=== PATIENT | female | born 1985 | race Caucasian/White ===

== ENCOUNTER 2020-07-12 17:06 | Emergency (ER) | payer OTHER, MEDICAID, SELFPAY ==
[2020-07-12 17:10] VITALS: BP 114/97; PULSE 66; RESP 14; TEMP 36.7; O2SAT 97
--- NOTE | 2020-07-12 17:14 | ECG_ITS ---
Measurements Intervals [place] Rate: 60 P: 4 HI: 177 QRS: 9 QRSD: 109 T: 18 QT: 432 QTc: 432 Interpretive Statements SINUS RHYTHM INCOMPLETE RIGHT BUNDLE BRANCH BLOCK BORDERLINE ECG Electronically Signed On 07-13-2020 7:45:31 CDT by Vinny Evans D.O.
[2020-07-12 17:15] VITALS: PULSE 66
--- NOTE | 2020-07-12 17:49 | ED.ARRPALP ---
HPI - Arrhythmia/Palpitations General Chief Complaint: Arrhythmia/Palpitations Stated Complaint: irregular heartbeat Time Seen by Provider: 07/12/20 18:00 Source: patient Mode of arrival: ambulatory Limitations: no limitations History of Present Illness HPI narrative: 34-year-old woman with previous awoke comes in today complaining of irregular heartbeats that lasted few seconds at a time. She noticed some 1st about a week ago after she was exercising and they happen multiple times every day. She states that she is very busy and under lot of stress recently. She states that sometimes she feels a little short of breath after an episode but she has had no syncope, cough, chest pain, sweats, nausea, vomiting or recent illness. complaint: palpitations Onset (ago): day(s) (7) Duration: intermittent Severity: mild Context: occurred during rest and occurred during exertion Associated symptoms: shortness of breath Related Data Home Medications Medication Instructions Recorded Confirmed norethindrone-e.estradiol-iron 1 tablet PO DAILY 07/12/20 07/12/20 [Thelma 24 Fe] Allergies Allergy/AdvReac Type Severity Reaction Status Date / Time No Known Allergies Allergy Verified 07/12/20 17:20 Review of Systems Constitutional: Constitutional: Denies chills and Denies fever(s) ENT: Denies dysphagia, Denies nasal congestion and Denies sore throat Cardiovascular: Cardiovascular: Denies chest pain, Denies rapid heart rate, Denies radiating jaw, neck or arm pain and Denies slow heart rate Respiratory: Respiratory: Denies cough, Denies dyspnea and Denies wheezing Gastrointestinal: Gastrointestinal: Denies abdominal pain, Denies nausea and Denies vomiting Neurologic: Denies vertigo, Denies dizziness, Denies syncope and Denies headache(s) Hematologic/Lymphatic: Hematologic/Lymphatic: Denies easy bleeding and Denies easy bruising Allergic/Immunologic: Allergic/Immunologic: Denies lip swelling, Denies throat swelling and Denies tongue swelling PMF Social History Social History Smoking status: Never smoker Alcohol intake: never Substance use type: marijuana Other substance usage details: oral THC at bedtime Living arrangements: with family Course Vital Signs Vital signs: Vital Signs Temperature 36.7 C 07/12/20 17:10 Pulse Rate 66 07/12/20 17:10 Respiratory Rate 14 07/12/20 17:10 Blood Pressure 114/97 H 07/12/20 17:10 Pulse Oximetry 97 07/12/20 17:10 Temperature 36.7 C 07/12/20 17:10 Pulse Rate 66 07/12/20 17:15 Respiratory Rate 14 07/12/20 17:10 Blood Pressure 114/97 H 07/12/20 17:10 Pulse Oximetry 97 07/12/20 17:10 MDM - Arrhythmia/Palpitations Lab Data Result diagrams: 07/12/20 18:32 07/12/20 18:32 Labs: Lab Results 07/12/20 07/12/20 07/12/20 Range/Units 18:32 18:32 18:32 WBC 5.4 (4.8-10.8) K/mm3 RBC 3.99 L (4.20-5.40) M/mm3 Hgb 11.7 L (12.0-15.0) g/dL Hct 36.5 (35.0-49.0) % MCV 91.5 (78.0-102.0) fL MCH 29.3 (27.0-31.0) pg MCHC 32.1 (32.0-36.0) g/dL RDW 13.1 (11.6-14.4) % Plt Count 228 (150-420) K/mm3 MPV 9.9 (9.2-11.8) fl Immature Gran % (Auto) 0.2 H (0.0-0.0) % Neut % (Auto) 59.1 (50.0-70.0) % Lymph % (Auto) 31.6 (18.0-42.0) % [place] % (Auto) 5.9 (2.0-11.0) % Eos % (Auto) 2.6 (1.0-6.0) % Baso % (Auto) 0.6 (0.0-1.0) % Lymph # (Auto) 1.70 (1.10-4.50) K/mm3 [place] # (Auto) 0.32 (0.10-0.90) K/mm3 Eos # (Auto) 0.14 (0.02-0.50) K/mm3 Baso # (Auto) 0.03 (0.00-0.10) K/mm3 Abs Immat Gran (auto) 0.01 H (0.00-0.00) K/mm3 Absolute Neuts (auto) 3.2 (1.7-7.2) K/mm3 Absolute Nucleated RBC 0.00 (0.00-0.00) K/mm3 Nucleated RBC % 0.0 (0-0.0) % Sodium 141 (136-145) mmol/L Potassium 4.0 (3.5-5.1) mmol/L Chloride 106 (98-108) mmol/L Carbon Dioxide 29 (21-32
[2020-07-12 18:37] LABS: Basophils Absolute Auto 0.03 K/mm3 (0.00-0.10); Basophils Percent Auto 0.6 % (0.0-1.0); Eosinophils Absolute Auto 0.14 K/mm3 (0.02-0.50); Eosinophils Percent Auto 2.6 % (1.0-6.0); Hematocrit 36.5 % (35.0-49.0); Hemoglobin 11.7 g/dL (12.0-15.0); Immature Granulocyte Absolute 0.01 K/mm3 (0.00-0.00); Immature Granulocyte Percent A 0.2 % (0.0-0.0); Lymphocytes Percent Auto 31.6 % (18.0-42.0); Mean Corpuscular HGB Conc 32.1 g/dL (32.0-36.0); Mean Corpuscular Hemoglobin 29.3 pg (27.0-31.0); Mean Corpuscular Volume 91.5 fL (78.0-102.0); Mean Platelet Volume 9.9 fl (9.2-11.8); Monocytes Absolute Auto 0.32 K/mm3 (0.10-0.90); Monocytes Percent Auto 5.9 % (2.0-11.0); Neutrophils Absolute Auto 3.2 K/mm3 (1.7-7.2); Neutrophils Percent Auto 59.1 % (50.0-70.0); Platelet Count Result 228 K/mm3 (150-420); Red Blood Count 3.99 M/mm3 (4.20-5.40); Red Cell Distribution Width 13.1 % (11.6-14.4); White Blood Count 5.4 K/mm3 (4.8-10.8)
[2020-07-12 19:01] LABS: Alanine Aminotransferase 21 U/L (14-59); Albumin Level 3.1 g/dL (3.4-5.0); Alkaline Phosphatase 51 U/L (46-116); Anion Gap 6 mmol/L (8-16); Aspartate Amino Transferase 16 U/L (15-37); Bilirubin,Total 0.3 mg/dL (0.00-1.00); Blood Urea Nitrogen 15 mg/dL (7-18); Calcium 8.2 mg/dL (8.5-10.1); Carbon Dioxide 29 mmol/L (21-32); Chloride 106 mmol/L (98-108); Estimated CRCL calculation 64 ml/min; Estimated Glomerular Filt Rate 55; Glucose 80 mg/dL (70-99); Osmolality Calculated 291 mOsm/kg (285-295); Sodium 141 mmol/L (136-145); Total Protein 6.7 g/dL (6.4-8.2)
[2020-07-12 19:37] VITALS: BP 111/56; PULSE 57; RESP 11; TEMP 36.6; O2SAT 100
== END 2020-07-12 19:38 | disposition home or self-care (01) ==
PROVIDERS: Emergency Provider Emergency Medicine; PCP Family Medicine
DX: R00.2 Palpitations (principal); R79.9 Abnormal finding of blood chemistry, unspecified
CPT/HCPCS: 36415; 80053; 84443; 85025; 93005; 99283

== ENCOUNTER 2021-01-27 17:45 | Outpatient (CLI) | payer OTHER, SELFPAY | END 2021-01-27 17:46 | disposition home or self-care (01) | LOC: ANHCOVIDVC 17:45 | PROVIDERS: PCP Family Medicine | DX: Z23 Encounter for immunization (principal) | CPT/HCPCS: 0001A; 91300 ==

== ENCOUNTER 2021-02-17 17:44 | Outpatient (CLI) | payer OTHER, SELFPAY | END 2021-02-17 17:45 | disposition home or self-care (01) | LOC: ANHCOVIDVC 17:44 | PROVIDERS: PCP Family Medicine | DX: Z23 Encounter for immunization (principal) | CPT/HCPCS: 0002A; 91300 ==

== ENCOUNTER 2021-11-21 10:23 | Outpatient (CLI) | payer OTHER, SELFPAY ==
[2021-11-21 11:16] LABS: SARS-CoV-2 Ag Positive (Negative)
== END 2021-11-21 10:24 | disposition home or self-care (01) ==
LOC: CHSLAB 10:26
PROVIDERS: PCP Family Medicine; Visit Provider Family Medicine
DX: U07.1 COVID-19 (principal); J00 Acute nasopharyngitis [common cold]
CPT/HCPCS: 87426; C9803

== ENCOUNTER 2022-02-06 13:48 | Outpatient (CLI) | payer OTHER, SELFPAY ==
[2022-02-12 13:30] LABS: Testosterone Free 2.8 pg/mL (0.1-6.4); Testosterone Total 24 ng/dL (2-45)
[2022-02-17 22:28] LABS: Estradiol, Ultrasensitive 116 pg/mL
== END 2022-02-06 13:49 | disposition home or self-care (01) ==
LOC: CHSLAB 13:52
PROVIDERS: PCP Family Medicine; Visit Provider Internal Medicine Hematology & Oncology
DX: R53.83 Other fatigue (principal); Z13.29 Encounter for screening for other suspected endocrine disorder
CPT/HCPCS: 36415; 82670; 82681; 84402; 84403

== ENCOUNTER 2022-02-12 10:10 | Outpatient (CLI) | payer OTHER, SELFPAY ==
[2022-02-12 11:07] LABS: Free T4 Free Thyroxine 1.07 ng/dL (0.76-1.46); Thyroid Stimulating Hormone Reflex 0.79 u/IU/mL (0.36-3.74)
[2022-02-17 08:11] LABS: Total Triiodothyronine (T3) 76 ng/dL (76-181)
== END 2022-02-12 10:11 | disposition home or self-care (01) ==
LOC: CHSLAB 10:11
PROVIDERS: PCP Family Medicine; Visit Provider Family Medicine
DX: R53.83 Other fatigue (principal); E11.9 Type 2 diabetes mellitus without complications
CPT/HCPCS: 36415; 84439; 84443; 84480

== ENCOUNTER 2022-02-17 08:04 | Outpatient (CLI) | payer OTHER, SELFPAY ==
[2022-02-17] MEDS: IRON SUCROSE COMPLEX 300 MG in SODIUM CHLORIDE 0.9% IV 235 ML 125 MG IVPB (08:15)
[2022-02-17 08:18] VITALS: BMI 30.1
[2022-02-17 08:20] VITALS: BP 106/68; PULSE 80; RESP 14; TEMP 36.6; O2SAT 98
--- NOTE | 2022-02-17 10:20 | PC.NURSE ---
Patient here for #1 of 4 IV Venofer infusions. Education on medication given. All concerns answered. IV Venofer administered. SEE MAR. Tolerated well. Safe exit of hospital. Will return for #2 of 4 02/24/22 at 0800.
== END 2022-02-17 08:05 | disposition home or self-care (01) ==
LOC: CHSTREATRM 08:07
PROVIDERS: PCP Family Medicine; Visit Provider Internal Medicine Hematology & Oncology
DX: D50.9 Iron deficiency anemia, unspecified (principal)
CPT/HCPCS: 96365; 96366; J1756; J7050

== ENCOUNTER 2022-02-24 07:55 | Outpatient (CLI) | payer OTHER, SELFPAY ==
[2022-02-24 08:10] VITALS: BMI 30.1
[2022-02-24 08:11] VITALS: BP 103/59; PULSE 60; RESP 14; TEMP 36.6; O2SAT 98
[2022-02-24] MEDS: IRON SUCROSE COMPLEX 300 MG in SODIUM CHLORIDE 0.9% IV 235 ML 125 MG IVPB (08:15)
--- NOTE | 2022-02-24 12:58 | PC.NURSE ---
Patient here for #2 of 4 Venofer infusion. No concerns voiced. IV Venofer infusion administered. SEE MAR. Tolerated well. Safe exit of hospital. Will return March 03, 2022 at 0800 for #3.
== END 2022-02-24 07:56 | disposition home or self-care (01) ==
LOC: CHSTREATRM 07:58
PROVIDERS: PCP Family Medicine; Visit Provider Internal Medicine Hematology & Oncology
DX: D50.9 Iron deficiency anemia, unspecified (principal)
CPT/HCPCS: 96365; 96366; J1756; J7050

== ENCOUNTER 2022-02-27 12:28 | Outpatient (CLI) | payer OTHER, SELFPAY ==
[2022-02-27 13:57] LABS: Iron 77 ug/dL (50-170); Percent Iron Saturation 32 % (12-57); Vitamin B12 843 pg/mL (193-986)
[2022-02-27 13:58] LABS: Folic Acid > 20.0 ng/mL (8.6->20)
[2022-02-27 14:42] LABS: Occult Blood Negative (Negative)
[2022-02-27 16:34] LABS: Ferritin 319 ng/mL (8-252)
[2022-03-03 03:36] LABS: Thyroid Peroxidase Antibodies 4 IU/mL (<9)
[2022-03-03 18:03] LABS: Vitamin D 25 Hydroxy 47 ng/mL (30-100)
[2022-03-09 19:17] LABS: Pancreatic Elastase, Stool >500 mcg/g
== END 2022-02-27 12:29 | disposition home or self-care (01) ==
LOC: CHSLAB 12:30
PROVIDERS: PCP Family Medicine; Visit Provider Nurse Practitioner
DX: D50.9 Iron deficiency anemia, unspecified (principal); R53.83 Other fatigue; R19.7 Diarrhea, unspecified
CPT/HCPCS: 36415; 82272; 82306; 82607; 82653; 82728; 82746; 83540; 83550; 86376

== ENCOUNTER 2022-03-03 08:00 | Outpatient (CLI) | payer OTHER, SELFPAY ==
--- NOTE | ~2022-03-03 | US_ITS ---
EXAMINATION: US thyroid DATE: 03/03/2022 10:33 INDICATION: Nontoxic goiter, unspecified. TECHNIQUE: Multiple ultrasound images of the thyroid were obtained. COMPARISON: None. FINDINGS: The right thyroid lobe measures 5.0 x 1.5 x 1.9 cm. The left thyroid lobe measures 4.8 x 1.1 x 1.6 c m. In the right thyroid lobe, there is a 9 mm solid, hypoechoic, [id number] nodule with smooth margin and peripheral calcifications (TI-RADS TR4). In the left thyroid lobe, there is a 4 mm nodule. IMPRESSION: 1. Small thyroid nodules, likely not clinically significant. No follow-up is needed. Reviewed, dictated and finalized at location B. IMPRESSION: 1. Small thyroid nodules, likely not clinically significant. No follow-up is ne eded.
[2022-03-03 08:03] VITALS: BMI 30.1
[2022-03-03 08:12] VITALS: BP 112/68; PULSE 68; RESP 14; TEMP 36.6; O2SAT 97
[2022-03-03] MEDS: IRON SUCROSE COMPLEX 300 MG in SODIUM CHLORIDE 0.9% IV 250 ML 125 MG IVPB (08:15)
--- NOTE | 2022-03-03 08:26 | PC.NURSE ---
Patient here for #3 of 4 IV Venofer infusions. No concerns voiced. So far reports no problems with Venofer infusions. IV Venofer administered. SEE MAR.KJ
--- NOTE | 2022-03-03 10:18 | PC.NURSE ---
Tolerated IV Venofer infusion well. Will return for #4 February at 0800. Safe exit of hospital.
== END 2022-03-03 08:01 | disposition home or self-care (01) ==
PROVIDERS: PCP Family Medicine; Visit Provider Internal Medicine Hematology & Oncology
DX: D50.9 Iron deficiency anemia, unspecified (principal)
CPT/HCPCS: 76536; 96365; 96366; J1756; J7050

== ENCOUNTER 2022-03-11 08:07 | Outpatient (CLI) | payer OTHER, SELFPAY ==
--- NOTE | 2022-03-11 08:15 | PC.NURSE ---
Pt to OP infusion center for venofer infusion. Pt A&Ox3. Has no complaints. Instructed on plan of care. Oriented to room. Has no questions. Call baum in reach. Reminded to call or voice needs.
[2022-03-11 08:23] VITALS: BP 91/53; PULSE 60; RESP 20; TEMP 35.4; O2SAT 98
[2022-03-11] MEDS: IRON SUCROSE COMPLEX 300 MG in SODIUM CHLORIDE 0.9% IV 235 ML 125 MG IVPB (08:33)
--- NOTE | 2022-03-11 10:38 | PC.NURSE ---
Venofer infused. Pt tolerated well. Discharged to home amb per self.
== END 2022-03-11 08:08 | disposition home or self-care (01) ==
LOC: CHSTREATRM 08:10
PROVIDERS: PCP Family Medicine; Visit Provider Internal Medicine Hematology & Oncology
DX: D50.9 Iron deficiency anemia, unspecified (principal)
CPT/HCPCS: 96365; 96366; 96367; J1756; J7050

== ENCOUNTER 2022-03-31 12:54 | Outpatient (CLI) | payer OTHER, SELFPAY ==
[2022-03-31 13:08] LABS: Basophils Absolute Auto 0.02 K/mm3 (0.00-0.10); Basophils Percent Auto 0.4 % (0.0-1.0); Eosinophils Absolute Auto 0.08 K/mm3 (0.02-0.50); Eosinophils Percent Auto 1.6 % (1.0-6.0); Hematocrit 41.3 % (35.0-49.0); Hemoglobin 13.9 g/dL (12.0-15.0); Immature Granulocyte Absolute 0.01 K/mm3 (0.00-0.00); Immature Granulocyte Percent A 0.2 % (0.0-0.0); Lymphocytes Percent Auto 22.1 % (18.0-42.0); Mean Corpuscular HGB Conc 33.7 g/dL (32.0-36.0); Mean Corpuscular Hemoglobin 30.1 pg (27.0-31.0); Mean Corpuscular Volume 89.4 fL (78.0-102.0); Mean Platelet Volume 9.4 fl (9.2-11.8); Monocytes Absolute Auto 0.29 K/mm3 (0.10-0.90); Monocytes Percent Auto 5.8 % (2.0-11.0); Neutrophils Absolute Auto 3.5 K/mm3 (1.7-7.2); Neutrophils Percent Auto 69.9 % (50.0-70.0); Platelet Count Result 224 K/mm3 (150-420); Red Blood Count 4.62 M/mm3 (4.20-5.40); Red Cell Distribution Width 11.7 % (11.6-14.4)
[2022-03-31 13:59] LABS: Ferritin 320 ng/mL (8-252); Iron 43 ug/dL (50-170); Percent Iron Saturation 22 % (12-57)
== END 2022-03-31 12:55 | disposition home or self-care (01) ==
LOC: CHSLAB 12:56
PROVIDERS: PCP Family Medicine; Visit Provider Internal Medicine Hematology & Oncology
DX: D50.9 Iron deficiency anemia, unspecified (principal)
CPT/HCPCS: 36415; 82728; 83540; 83550; 85025

== ENCOUNTER 2022-08-17 15:16 | Outpatient (CLI) | payer OTHER, SELFPAY ==
[2022-08-17 15:29] LABS: Hematocrit 40.5 % (35.0-49.0); Hemoglobin 13.7 g/dL (12.0-15.0); Mean Corpuscular HGB Conc 33.8 g/dL (32.0-36.0); Mean Corpuscular Hemoglobin 30.8 pg (27.0-31.0); Mean Platelet Volume 9.4 fl (9.2-11.8); Platelet Count Result 227 K/mm3 (150-420); Red Blood Count 4.45 M/mm3 (4.20-5.40); Red Cell Distribution Width 11.7 % (11.6-14.4)
[2022-08-17 16:17] LABS: Ferritin 184 ng/mL (8-252); Iron 81 ug/dL (50-170); Percent Iron Saturation 34 % (12-57)
== END 2022-08-17 15:17 | disposition home or self-care (01) ==
LOC: CHSLAB 15:18
PROVIDERS: PCP Family Medicine; Visit Provider Family Medicine
DX: D50.9 Iron deficiency anemia, unspecified (principal)
CPT/HCPCS: 36415; 82728; 83540; 83550; 85027

== ENCOUNTER 2022-09-30 14:46 | Outpatient (CLI) | payer OTHER, SELFPAY ==
[2022-09-30 15:03] LABS: Basophils Absolute Auto 0.02 K/mm3 (0.00-0.10); Basophils Percent Auto 0.4 % (0.0-1.0); Eosinophils Percent Auto 1.8 % (1.0-6.0); Hematocrit 42.7 % (35.0-49.0); Hemoglobin 14.5 g/dL (12.0-15.0); Immature Granulocyte Absolute 0.01 K/mm3 (0.00-0.00); Immature Granulocyte Percent A 0.2 % (0.0-0.0); Lymphocytes Absolute Auto 1.53 K/mm3 (1.10-4.50); Lymphocytes Percent Auto 27.5 % (18.0-42.0); Mean Corpuscular Hemoglobin 30.3 pg (27.0-31.0); Mean Corpuscular Volume 89.1 fL (78.0-102.0); Mean Platelet Volume 9.3 fl (9.2-11.8); Monocytes Absolute Auto 0.36 K/mm3 (0.10-0.90); Monocytes Percent Auto 6.5 % (2.0-11.0); Neutrophils Absolute Auto 3.5 K/mm3 (1.7-7.2); Neutrophils Percent Auto 63.6 % (50.0-70.0); Platelet Count Result 234 K/mm3 (150-420); Red Blood Count 4.79 M/mm3 (4.20-5.40); White Blood Count 5.6 K/mm3 (4.8-10.8)
[2022-09-30 15:41] LABS: Ferritin 217 ng/mL (8-252); Iron 102 ug/dL (50-170); Percent Iron Saturation 40 % (12-57)
== END 2022-09-30 14:47 | disposition home or self-care (01) ==
LOC: CHSLAB 14:49
PROVIDERS: PCP Family Medicine; Visit Provider Internal Medicine Hematology & Oncology
DX: D50.9 Iron deficiency anemia, unspecified (principal)
CPT/HCPCS: 36415; 82728; 83540; 83550; 85025

== ENCOUNTER 2022-11-27 09:08 | Outpatient (CLI) | payer OTHER, SELFPAY ==
[2022-11-27 09:55] LABS: Strep Group A RT-PCR NOT DETECTED (Negative)
[2022-11-27 10:04] LABS: Influenza A QL RT-PCR Negative (Negative); Influenza B QL RT-PCR Negative (Negative); SARS-CoV-2 RNA PCR Negative (Negative)
== END 2022-11-27 09:09 | disposition home or self-care (01) ==
LOC: CHSLAB 09:09
PROVIDERS: PCP Family Medicine; Visit Provider Family Medicine
DX: J06.9 Acute upper respiratory infection, unspecified (principal); Z20.822 Contact with and (suspected) exposure to COVID-19
CPT/HCPCS: 87636; 87651

== ENCOUNTER 2022-12-23 09:35 | Outpatient (CLI) | payer SELFPAY | END 2022-12-23 09:36 | disposition home or self-care (01) | LOC: CHSLAB 09:37 | PROVIDERS: PCP Family Medicine; Visit Provider Family Medicine | DX: E66.3 Overweight (principal) | CPT/HCPCS: 99199 ==

== ENCOUNTER 2023-03-24 14:49 | Outpatient (CLI) | payer OTHER, SELFPAY ==
[2023-03-24 15:05] LABS: Basophils Absolute Auto 0.04 K/mm3 (0.00-0.10); Basophils Percent Auto 0.6 % (0.0-1.0); Eosinophils Absolute Auto 0.13 K/mm3 (0.02-0.50); Eosinophils Percent Auto 1.9 % (1.0-6.0); Hematocrit 38.7 % (35.0-49.0); Hemoglobin 12.9 g/dL (12.0-15.0); Immature Granulocyte Absolute 0.01 K/mm3 (0.00-0.00); Immature Granulocyte Percent A 0.1 % (0.0-0.0); Lymphocytes Absolute Auto 1.37 K/mm3 (1.10-4.50); Lymphocytes Percent Auto 20.4 % (18.0-42.0); Mean Corpuscular HGB Conc 33.3 g/dL (32.0-36.0); Mean Corpuscular Hemoglobin 30.5 pg (27.0-31.0); Mean Corpuscular Volume 91.5 fL (78.0-102.0); Mean Platelet Volume 9.5 fl (9.2-11.8); Monocytes Absolute Auto 0.41 K/mm3 (0.10-0.90); Monocytes Percent Auto 6.1 % (2.0-11.0); Neutrophils Absolute Auto 4.8 K/mm3 (1.7-7.2); Neutrophils Percent Auto 70.9 % (50.0-70.0); Platelet Count Result 239 K/mm3 (150-420); Red Blood Count 4.23 M/mm3 (4.20-5.40); Red Cell Distribution Width 12.4 % (11.6-14.4); White Blood Count 6.7 K/mm3 (4.8-10.8)
[2023-03-24 15:44] LABS: Ferritin 164 ng/mL (8-252); Iron 63 ug/dL (50-170); Percent Iron Saturation 13 % (12-57)
== END 2023-03-24 14:50 | disposition home or self-care (01) ==
PROVIDERS: PCP Family Medicine; Visit Provider Internal Medicine Hematology & Oncology
DX: D50.9 Iron deficiency anemia, unspecified (principal)
CPT/HCPCS: 36415; 82728; 83540; 83550; 85025

== ENCOUNTER 2023-06-03 13:27 | Outpatient (CLI) | payer OTHER, SELFPAY ==
[2023-06-03 14:44] LABS: Thyroid Stimulating Hormone Reflex 0.97 u/IU/mL (0.36-3.74)
== END 2023-06-03 13:28 | disposition home or self-care (01) ==
LOC: CHSLAB 13:28
PROVIDERS: PCP Family Medicine; Visit Provider Family Medicine
DX: E11.9 Type 2 diabetes mellitus without complications (principal)
CPT/HCPCS: 36415; 84443

== ENCOUNTER 2023-06-11 13:06 | Outpatient (CLI) | payer OTHER, SELFPAY ==
--- NOTE | ~2023-06-11 | US_ITS ---
US thyroid INDICATION: Abnormal thyroid function tests. TECHNIQUE: Real-time sonographic images of the thyroid gland were obtained. COMPARISON: Ultrasound dated 03/03/2022 FINDINGS: The right thyroid lobe measures 5.2 x 1.5 x 1.8 cm. The left thyroid lobe measures 4.6 x 1 .5 x 1.4 cm. Thyroid echotexture is heterogeneous. In the right lobe there is an 8 x 8 x 7 mm hypoech oic, wider than tall, smoothly marginated mass with peripheral calcifications, TR 4, unchanged allowi ng for differences of technique. Stable 3 mm hypoechoic nodule of the left lobe, likely benign. Brittany l vascular flow is present. IMPRESSION: 1. Stable thyroid nodules, likely benign. Reviewed, dictated and finalized at location A.
== END 2023-06-11 13:07 | disposition home or self-care (01) ==
LOC: CHSIMG 13:07
PROVIDERS: PCP Family Medicine; Visit Provider Family Medicine
DX: R94.6 Abnormal results of thyroid function studies (principal); E04.2 Nontoxic multinodular goiter
CPT/HCPCS: 76536

== ENCOUNTER 2023-09-27 11:20 | Outpatient (CLI) | payer OTHER, SELFPAY ==
[2023-09-27 12:15] LABS: Ferritin 114 ng/mL (8-252); Iron 77 ug/dL (50-170); Percent Iron Saturation 29 % (12-57)
== END 2023-09-27 11:21 | disposition home or self-care (01) ==
LOC: CHSLAB 11:21
PROVIDERS: PCP Family Medicine; Visit Provider Family Medicine
DX: D50.9 Iron deficiency anemia, unspecified (principal); R53.83 Other fatigue
CPT/HCPCS: 36415; 82728; 83540; 83550

== ENCOUNTER 2024-01-05 12:03 | Outpatient (CLI) | payer OTHER, SELFPAY ==
[2024-01-05 12:58] LABS: SARS-CoV-2 RNA PCR Negative (Negative)
[2024-01-05 13:00] LABS: Influenza A QL RT-PCR Negative (Negative); Influenza B QL RT-PCR Negative (Negative); RSV RNA, RT-PCR Negative (Negative)
== END 2024-01-05 12:04 | disposition home or self-care (01) ==
LOC: CHSLAB 12:06
PROVIDERS: PCP Nurse Practitioner Family; Visit Provider Nurse Practitioner Family
DX: R05.9 Cough, unspecified (principal); Z20.822 Contact with and (suspected) exposure to COVID-19
CPT/HCPCS: 87637

== ENCOUNTER 2024-11-17 20:28 | Emergency (ER) | payer OTHER, SELFPAY ==
--- NOTE | ~2024-11-17 | CT_ITS ---
CT facial & cervical spine wo Ordering provider: Mushtaq Carter MD History: . trauma. FALL. FRONTAL HEAD AND FACE PAIN. NECK PAIN. . Comparison: None. Technique: Thin slice axial CT of the facial bones was performed without contrast. Coronal and sagit jermaine reformatted images were also obtained. . Automated exposure control and iterative reconstruction technique were employed. The dose-length product was 371.11 mGy-cm. FINDINGS: PARANASAL SINUSES: Bilateral ethmoid sinus disease. Bilateral maxillary sinus disease more on the left side. Obliteration of the ostiomeatal complexes bi laterally. Prominent 30 minutes. BONES: No facial fracture including no nasal bone fracture. ORBITS AND SUPERFICIAL SOFT TISSUES: The optic globes and orbits are normal. Left frontal scalp hemat candido. Otherwise, The superficial soft tissues are normal. Calcified lesion in the right lobe of the thyroid. Ultrasound evaluation advised. VISUALIZED MASTOIDS: Well aerated. LIMITED VISUALIZED BRAIN PARENCHYMA: Normal. IMPRESSION: No facial fracture. CT facial & cervical spine wo Ordering provider: Mushtaq Carter MD History: . trauma. FALL. FRONTAL HEAD AND FACE PAIN. NECK PAIN. . Comparison: None. Technique: CT of the cervical spine was performed without contrast. Sagittal and coronal reformatted images were also obtained and reviewed. Automated exposure control and iterative reconstruction francis hnique were employed. The dose-length product was 371.11 mGy-cm. FINDINGS: VERTEBRAE: No subluxation or acute fracture. The occipital condyles are intact. DISC SPACES: Narrowing of the disc C5-C6. PARASPINOUS SOFT TISSUES: Normal. IMPRESSION: No acute osseous abnormality cervical spine. Reviewed, dictated and finalized at location A. 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 CT facial & cervical spine wo Ordering provider: Mushtaq Carter MD History: . trauma. FALL. FRONTAL HEAD AND FACE PAIN. NECK PAIN. . Comparison: None. Technique: CT of the cervical spine was performed without contrast. Sagittal a nd coronal reformatted images were also obtained and reviewed. Automated expos ure control and iterative reconstruction technique were employed. The dose-salvador th product was 371.11 mGy-cm. FINDINGS: VERTEBRAE: No subluxation or acute fracture. The occipital condyles are intact. DISC SPACES: Narrowing of the disc C5-C6. PARASPINOUS SOFT TISSUES: Normal.
--- NOTE | ~2024-11-17 | CT_ITS ---
CT brain wo con Ordering provider: Mushtaq Carter MD History: 39 years Female with . head injury, FRONTAL. FALL THIS EVENING. . Comparison: None. Technique: CT of the head without contrast. Radiation reduction technique utilized.The dose-length product was 605.33 mGy-cm. FINDINGS: BRAIN PARENCHYMA AND CSF SPACES: No midline shift, mass effect or hemorrhage. The brain parenchyma a nd CSF spaces are otherwise normal. VISUALIZED PARANASAL SINUSES: Bilateral ethmoid sinus. MASTOIDS: Well aerated. BONES: The bones appear intact. SOFT TISSUES: Visualized nasopharynx is normal. Small left frontal scalp hematoma. Otherwise, Superf icial soft tissues are normal. IMPRESSION: No acute intracranial findings. Reviewed, dictated and finalized at location A. ISH LANGUAGE LECTURER
[2024-11-17 20:32] VITALS: BP 117/81; PULSE 65; RESP 18; TEMP 36; O2SAT 98
--- NOTE | 2024-11-17 20:44 | ED.WOUNDLAC ---
HPI - Wound/Laceration General Chief Complaint: Wound/Laceration Stated Complaint: head lac Time Seen by Provider: 11/17/24 20:33 Source: patient and family Mode of arrival: ambulatory Limitations: no limitations History of Present Illness HPI narrative: Patient is a 39-year-old female with a left eyebrow does scalp area laceration after falling mechanically at home. Patient fell out of her slipper and landed on her face on the rail at home. No syncope. She has pain at this time at the site of laceration. No other complaints. Onset (ago): minute(s) (30) Location: face ( Left above eyebrow) Place: home Patient tetanus UTD: Yes Context: accidental Associated symptoms: none Treatments prior to arrival: bandage Related Data Home Medications ?Medication ?Instructions ?Recorded ?Confirmed ?Last Taken ?Type cetirizine 10 mg tablet (Zyrtec) 10 mg PO DAILY 02/17/22 09/26/24 Unknown History Allergies Allergy/AdvReac Type Severity Reaction Status Date / Time No Known Allergies Allergy Verified 09/26/24 13:01 Review of Systems Review of Systems: All systems reviewed & are unremarkable except as noted in HPI and below Constitutional: Constitutional: Reports no additional constitutional complaints Eyes: Eyes: Reports no additional eye complaints ENT: Reports system reviewed and no additional complaints, except as documented Cardiovascular: Cardiovascular: Reports no additional cardiovascular complaints Respiratory: Respiratory: Reports no additional respiratory complaints Gastrointestinal: Gastrointestinal: Reports no additional gastrointestinal complaints Genitourinary: Genitourinary: Reports no additional female genitourinary complaints Musculoskeletal: Musculoskeletal: Reports no additional musculoskeletal complaints Integumentary/Breasts: Skin/Breast: Reports system reviewed and no additional complaints, except as docu Neurologic: Reports system reviewed and no additional complaints, except as documented Psychiatric: Psychiatric: Reports no additional psychiatric complaints Endocrine: Endocrine: Reports no additional endocrine complaints Hematologic/Lymphatic: Hematologic/Lymphatic: Reports no additional hematologic/lymphatic complaints Allergic/Immunologic: Allergic/Immunologic: Reports no additional allergic/immunologic complaints PMFSH Surgical History Surgical History H/O breast surgery 04/2017 Hx of appendectomy Social History Social History Smoking status: Never smoker Alcohol intake: never Substance use type: marijuana Other substance usage details: oral THC at bedtime Lack of Transportation: No Lack of Food: Never True Current Housing: I Have Housing Concerned About Future Housing: No Difficulty Paying Gas/Electric Bills: No Difficulty Paying for Meds: No Currently Unemployed: No Education: Trade/Vocational Certificate Difficulty w/ Childcare or Family Care: No Living arrangements: with family Exam Const: General: healthy appearing Nutritional Appearance: well nourished Orientation/consciousness: patient oriented x3 Limitations: no limitations HENMT: Head: normal to inspection Ears: external ears normal Face/Nose/Sinus: Normal external nose present Eyes: Conjunctivae: conjunctivae normal Pupils: Equal, round and reactive pupils present EOM: EOMs intact bilaterally Neck: Neck: normal visual inspection Chest: Chest palpation & inspection: normal inspection of the chest Resp: Effort & Inspection: normal respiratory effort and not labored Auscultation: clear to auscultation bilaterally and no crackles Cardio: Rate: regular rate Rhythm: regular rhythm Heart sounds: no murmurs GI: Inspection: non-distended GI Palp: Yes Soft to palpation and No Tenderness to palpation present (GI) Auscultation: normal bowel sounds Back/Spine/Pelvis: Back: no CVA tenderness Skin: General skin exam: normal color Rashes: no rashes Wounds: wounds noted Other: left above eyebrow area scalp has 2 distinct lacerations in an L shape each laceration come together to make the L and each side is 3 cm in length totaling 6 cm; there is still some brisk bleeding and pressure bandage was placed to get CAT scans done Neuro: General: patient oriented x3 Cranial nerves: Yes Nystagmus not present Speech: normal speech Gait exam (Neuro): Normal gait present Other: GCS is 15, fast exam negative, NIH is 0 Extrem: General: normal to inspection Psych: Mental Status: mental status grossly normal Affect: normal affect Attitude: cooperative Course Vital Signs Vital signs: Vital Signs Temperature 36.0 C L 11/17/24 20:32 Pulse Rate 65 11/17/24 20:32 Respiratory Rate 18 11/17/24 20:32 Blood Pressure 117/81 11/17/24 20:32 Pulse Oximetry 98 11/17/24 20:32 Oxygen Delivery Room Air 11/17/24 20:32 Temperature 36.0 C L 11/17/24 20:32 Pulse Rate 65 11/17/24 20:32 Respiratory Rate 18 11/17/24 20:32 Blood Pressure 117/81 11/17/24 20:32 Pulse Oximetry 98 11/17/24 20:32 Oxygen Delivery Room Air 11/17/24 20:32 Procedures Other Procedure Procedure 1: Other Procedure: Left frontal scalp above eyebrow has a totaling 6 cm laceration in an L shape linear: Area cleaned with chlorhexidine, lidocaine was used for anesthesia 8 CC, times 10 running sutures simple and 4 simple sutures, 4-0 nylon with a small needle x2 used, good proximity and closure appreciated, triple antibiotic ointment placed, patient tolerated procedure well without complications MDM - Wound/Laceration MDM Narrative Medical decision making narrative: patient is a 39-year-old female with a frontal head injury and laceration. We will get CT scans done and then suture the area closed. Imaging Data Attestation: I personally reviewed and interpreted this imaging study as follows: Radiologist's impression: CT scan of the head was negative for acute process CT scan of the cervical spine was negative for acute process CT scan of the facial bones was negative for acute process Discharge Plan Discharge Clinical Impression: Complex laceration of face Qualifiers: Encounter type: initial encounter Qualified Code(s): S01.91XA - Laceration without foreign body of unspecified part of head, initial encounter Head injury Qualifiers: Encounter type: initial encounter Qualified Code(s): S09.90XA - Unspecified injury of head, initial encounter Patient Disposition: Home, Self-Care Condition: Stable Instructions: Antibiotic Form, Care For Your Stitches (ED), Concussion (ED), Head Injury (DC) Additional Instructions: please follow-up with primary doctor in the next week. Have stitches removed in 7 days but not more than 10 days. Use antibiotic ointment or cream on the area twice a day. You may use vitamin E. She does not currently have a concussion but I have given you a handout in case she starts having some symptoms. Patient Language: Bulgarian Prescriptions: No Action cetirizine [Zyrtec] 10 mg Tablet 10 mg PO DAILY sertraline 100 mg tablet 100 mg PO DAILY Qty: 90 3RF ipratropium bromide 42 mcg (0.06 %) spray,non-aerosol 2 spray intranasal TID Qty: 15 5RF Rx Instructions: administer into each nostril methylphenidate HCl 5 mg tablet 5 mg PO BID Qty: 60 0RF Follow-up/Referrals: Mc Hirsch DO [Primary Care Provider] - Time of Disposition: 23:46
[2024-11-17] MEDS: ACETAMINOPHEN 500 MG TABLET 1000 MG PO (21:44)
[2024-11-17] MEDS: LIDOCAINE 1% LOCAL INJ 10 ML VIAL INFILTRATE (23:07)
[2024-11-17] MEDS: NEOMYCIN/POLYMYXIN/BACITRACIN OINTMENT PACKET 1 PACKET TOPICAL (23:40)
[2024-11-17] MEDS: KETOROLAC (*BKC) 60 MG/2 ML VIAL IM (23:45)
[2024-11-17 23:58] VITALS: BP 124/78; PULSE 81; RESP 18; O2SAT 99
== END 2024-11-17 23:58 | disposition home or self-care (01) ==
PROVIDERS: Emergency Provider Emergency Medicine; PCP Family Medicine
DX: S01.01XA Laceration without foreign body of scalp, initial encounter (principal); F12.90 Cannabis use, unspecified, uncomplicated; W01.198A Fall on same level from slipping, tripping and stumbling with subsequent striking against other object, initial encounter; Y92.009 Unspecified place in unspecified non-institutional (private) residence as the place of occurrence of the external cause
CPT/HCPCS: 12002; 70450; 70486; 72125; 96372; 99283; J1885; J2003

== ENCOUNTER 2024-12-27 15:53 | Outpatient (NON) | payer OTHER, SELFPAY | END 2024-12-27 15:54 | disposition home or self-care (01) | PROVIDERS: Visit Provider Family Medicine | DX: D22.5 Melanocytic nevi of trunk (principal) | CPT/HCPCS: 88305 ==

== ENCOUNTER 2025-05-08 13:14 | Outpatient (CLI) | payer OTHER, SELFPAY ==
--- NOTE | 2025-05-08 15:00 | NEURO_ITS ---
Impression: #Non diabetic,complains of numbness of hands.? # Mild sensory more than motor Carpal Tunnel Syndrome, left more than right. ? # No ulnar neuropathy. ? # Normal needle/EMG exam. ?Stim Site NR Peak (ms) P-T Amp (?V) Site1 Site2 Delta-P (ms) Dist (cm) Neville (m/s) Left Median Anti Sensory (2-3nd Digit) Wrist ? 4.4 15.7 Wrist 2-3nd Digit 4.4 14.0 32 Wrist ? 4.5 17.2 Wrist 2-3nd Digit 4.4 14.0 32 Right Median Anti Sensory (2-3nd Digit) Wrist ? 4.0 30.6 Wrist 2-3nd Digit 4.0 14.0 35 Wrist ? 4.1 46.6 Wrist 2-3nd Digit 4.0 14.0 35 Left Radial Anti Sensory (Base 1st Digit) Wrist ? 1.9 16.0 Wrist Base 1st Digit 1.9 0.0 Right Radial Anti Sensory (Base 1st Digit) Wrist ? 1.9 29.7 Wrist Base 1st Digit 1.9 0.0 Left Ulnar Anti Sensory (5th Digit) Wrist ? 2.4 39.2 Wrist 5th Digit 2.4 14.0 58 Right Ulnar Anti Sensory (5th Digit) Wrist ? 2.3 58.0 Wrist 5th Digit 2.3 14.0 61 Motor Summary Table ?Stim Site NR Onset (ms) O-P Amp (mV) Site1 Site2 Delta-0 (ms) Dist (cm) Neville (m/s) Left Median Motor (Abd Poll Brev) Wrist ? 4.1 2.7 Elbow Wrist 4.7 28.0 60 Elbow ? 8.8 5.0 Right Median Motor (Abd Poll Brev) Wrist ? 3.9 2.2 Elbow Wrist 4.6 28.0 61 Elbow ? 8.5 2.2 Left Ulnar Motor (Abd Dig Minimi) Wrist ? 2.5 8.7 A Elbow Wrist 5.2 30.0 58 A Elbow ? 7.7 7.4 B Elbow Wrist 4.0 23.0 58 B Elbow ? 6.5 2.7 Right Ulnar Motor (Abd Dig Minimi) Wrist ? 2.5 6.7 A Elbow Wrist 4.8 30.0 63 A Elbow ? 7.3 6.5 B Elbow Wrist 3.7 23.0 62 B Elbow ? 6.2 3.4 F Wave Studies ?NR F-Lat (ms) L-R F-Lat (ms) Left Median (Mrkrs) (Abd Poll Brev) ? 30.60 0.76 Right Median (Mrkrs) (Abd Poll Brev) ? 29.84 0.76 Left Ulnar (Mrkrs) (Abd Dig Min) ? 27.03 0.08 Right Ulnar (Mrkrs) (Abd Dig Min) ? 26.95 0.08 EMG ?Side Muscle Nerve Root Ins Act Fibs Amp Dur Recrt Comment Right 1stDorInt Ulnar C8-T1 Nml Nml Nml Nml Nml Right Ext Indicis Radial (Post Int) C7-8 Nml Nml Nml Nml Nml Right Ext Digitorum Radial (Post Int) C7-8 Nml Nml Nml Nml Nml Right BrachioRad Radial C5-6 Nml Nml Nml Nml Nml Right PronatorTeres Median C6-7 Nml Nml Nml Nml Nml Right Abd Poll Brev Median C8-T1 Nml Nml Nml Nml Nml Right ABD Dig Min Ulnar C8-T1 Nml Nml Nml Nml Nml Right FlexPolLong Median (Ant Int) C7-8 Nml Nml Nml Nml Nml Right Abd Poll Long Radial (Post Int) C7-8 Nml Nml Nml Nml Nml Left 1stDorInt Ulnar C8-T1 Nml Nml Nml Nml Nml Left Ext Indicis Radial (Post Int) C7-8 Nml Nml Nml Nml Nml Left Ext Digitorum Radial (Post Int) C7-8 Nml Nml Nml Nml Nml Left BrachioRad Radial C5-6 Nml Nml Nml Nml Nml Left PronatorTeres Median C6-7 Nml Nml Nml Nml Nml Left Abd Poll Brev Median C8-T1 Nml Nml Nml Nml Nml Left ABD Dig Min Ulnar C8-T1 Nml Nml Nml Nml Nml Left FlexPolLong Median (Ant Int) C7-8 Nml Nml Nml Nml Nml Left Abd Poll Long Radial (Post Int) C7-8 Nml Nml Nml Nml Nml
== END 2025-05-08 13:15 | disposition home or self-care (01) ==
LOC: ANHNEURO 13:18
PROVIDERS: PCP Family Medicine; Visit Provider Physician Assistant Surgical
DX: G56.03 Carpal tunnel syndrome, bilateral upper limbs (principal)
CPT/HCPCS: 95886; 95911

== ENCOUNTER 2025-06-28 08:13 | Day surgery (SDC) | payer OTHER, SELFPAY ==
[2025-06-13 11:17] VITALS: BMI 28.6
--- NOTE | 2025-06-28 06:59 | P.HP_ITS ---
History of Present Illness History of Present Illness Chief complaint: Bilateral Carpal Tunnel Syndrome Narrative: Patient seen and examined in pre-operative holding area. No interval change in medical history or symptoms. Patient recalls previous discussion of benefits and alternatives to procedure. Continues to desire to proceed with left endoscopic possible open carpal tunnel releaase. Reviewed procedure, post-op expectations and risks including but not limited to bleeding, infection, injury to tendon/ nerve/vessel, decreased hand function, stiffness, RSD, no change or worsening of symptoms. I discussed the possible use of assistants and their participation in the case. Patient stated understanding and signed the consent form wishing to proceed. Review of Systems Review of Systems: All systems reviewed & are unremarkable except as noted in HPI and below PMFSH Surgical History Surgical History H/O breast surgery 04/2017 Hx of appendectomy Social History Social History Smoking status: Never smoker Alcohol intake: never Substance use type: marijuana Other substance usage details: oral THC at bedtime Lack of Transportation: No Lack of Food: Never True Current Housing: I Have Housing Concerned About Future Housing: No Difficulty Paying Gas/Electric Bills: No Difficulty Paying for Meds: No Currently Unemployed: No Education: Trade/Vocational Certificate Difficulty w/ Childcare or Family Care: No Living arrangements: with family Meds Home Medications and Allergies Home Medications ?Medication ?Instructions ?Recorded ?Confirmed ?Type cetirizine 10 mg tablet (Zyrtec) 10 mg PO DAILY 02/17/22 06/28/25 History lisdexamfetamine 30 mg capsule 30 mg PO QAM #30 caps 05/16/25 06/28/25 Rx (Vyvanse) sertraline 200 mg capsule 200 mg PO DAILY #90 caps 06/26/25 06/28/25 Rx tramadol 50 mg tablet 50 mg PO Q6H PRN pain #12 tabs 06/28/25 Rx Allergies Allergy/AdvReac Type Severity Reaction Status Date / Time No Known Allergies Allergy Verified 06/28/25 08:24 Exam Narrative: unchanged Assessment and Plan Assessment and plan (1) Bilateral carpal tunnel syndrome: Code(s): G56.03 - Carpal tunnel syndrome, bilateral upper limbs Status: Acute Assessment and Plan: cont as above
--- NOTE | 2025-06-28 06:59 | W.PM.PROC2 ---
Procedure Note - Detailed Date of Procedure 06/28/25 Pre-op Diagnosis Bilateral Carpal Tunnel Syndrome Post-op Diagnosis Same Procedure Performed left ectr Surgeon Georgia Machado MD Voltmeter Operator mendez hartmann pa-c Anesthesia MAC Description of Procedure INFORMED CONSENT: The patient was seen and examined and marked in the pre-op area.? The patient signed the consent form. PROCEDURE IN DETAIL:The patient taken back to OR on the stretcher in supine position. Time out performed with anesthesia, surgeon and staff agreeing on patient's name site and surgery to be performed SCDs were placed on the lower extremities and inflated. A tourniquet was placed on {left} upper extremity and antibiotics given IV After anesthesia administered sedation I injected {5}cc 1%lido with epi and 0.5% marcaine plain at the operative site The?{left upper extremity}?was prepped and draped in sterile fashion the??{left upper extremity} was? exsanguinated with Esmarch bandage and tourniquet inflated to 250mmHg I made a transverse incision in the {left} volar distal wrist crease through skin and dermis with 15 blade scalpel.? Littler scissors spread down to antebrachial fascia. A small incision was made in antebrachial fascia allowing access to Carpal tunnel. I proceeded with sequential dilation staying in line with the ring finger and hugging the hook of the hamate.? I then used the synovial elevator to free any adhesions from the underside of the transverse carpal ligament. Next I was able to insert the Microaire endoscopic carpal tunnel device with direct visualization of the transverse fibers on the monitor and proceeded with complete segmental retrograde release of the ligament in its entirety.? I irrigated with normal saline and closed with 4-0 monocryl for dermis and subcuticular closure. A dressing of Dermabond, 4x4, poly, and a volar splint was applied for patient safety, security, and comfort and secured with an caryn bandage after the tourniquet was let down noting the hand was warm and well perfused. The patient was then awaken from anesthesia and transferred to the recovery room in stable condition.? Complications - none EBL- 0cc Disposition - home in stable condition Mendez Hartmann PA-C was essential for positioning, retraction, closure and dressing placement [facility]illing Surgery - Charge Forward: Surgery Billing ([id number] for mendez)
[2025-06-28 08:40] VITALS: BP 102/64; PULSE 63; RESP 16; TEMP 36.4; O2SAT 99; BMI 28.5
--- NOTE | 2025-06-28 08:40 | WPDANESEPPF ---
Anes - Initial Pre Proc Eval Procedure: Operation Date: 06/28/25 09:45 Proposed Procedures p Left Endoscopic Carpal Tunnel Release, Possible Open Carpal Tunnel Release - Georgia Machado MD Date/Time: 06/28/25 08:40 Surgeon: Georgia Machado MD Pre Op Diagnosis: Bilateral Carpal Tunnel Syndrome Patient Data Age: 39 Gender: F Height: 1.7 m Weight: 83 kg Allergies Allergy/AdvReac Type Severity Reaction Status Date / Time No Known Allergies Allergy Verified 06/28/25 08:24 Home Medications ?Medication ?Instructions ?Recorded ?Confirmed ?Type cetirizine 10 mg tablet (Zyrtec) 10 mg PO DAILY 02/17/22 06/28/25 History lisdexamfetamine 30 mg capsule 30 mg PO QAM #30 caps 05/16/25 06/28/25 Rx (Vyvanse) sertraline 200 mg capsule 200 mg PO DAILY #90 caps 06/26/25 06/28/25 Rx Patient hx anesthesia problems: none Family hx anesthesia problems: none Results Review: All pre-operative results and documents have been reviewed as part of the pre-operative evaluation. [facility] Surgical History Surgical History H/O breast surgery 04/2017 Hx of appendectomy Social History Social History Smoking status: Never smoker Alcohol intake: never Substance use type: marijuana Other substance usage details: oral THC at bedtime Lack of Transportation: No Lack of Food: Never True Current Housing: I Have Housing Concerned About Future Housing: No Difficulty Paying Gas/Electric Bills: No Difficulty Paying for Meds: No Currently Unemployed: No Education: Trade/Vocational Certificate Difficulty w/ Childcare or Family Care: No Living arrangements: with family Anes - Eval Final PreProcedure Day of Procedure 06/28/25 08:40 Heart: regular rate and rhythm Lungs: clear to auscultation Airway: Mallampati scale class 1 Neurological: alert and oriented Last oral intake: >/= 8 hours ASA classification: II Anesthetic plan: proceed Anesthesia type and monitoring: monitored anesthesia care Results Review: All pre-operative results and documents have been reviewed as part of the pre-operative evaluation. Informed Consent: The patient's anesthetic plan and its attendant risks and benefits were discussed with the patient/family/POA. Questions were solicited and answers provided to the satisfaction of the patient/family/POA.
[2025-06-28] MEDS: LACTATED RINGERS 1,000 ML 30 ML IV CONT (08:55)
[2025-06-28] MEDS: ACETAMINOPHEN 500 MG TABLET 1000 MG PO (08:56)
[2025-06-28] MEDS: ceFAZolin SODIUM 2 GM/20 ML SW SYRINGE IV PUSH (09:31)
--- NOTE | 2025-06-28 09:43 | WPDANESPN ---
Anes - Prog Note Post-Op Date/Time: 06/28/25 09:43 Vital Signs: Last Vital Signs Temp 97.6 F 06/28/25 08:40 Pulse 63 06/28/25 08:40 Resp 16 06/28/25 08:40 BP 102/64 06/28/25 08:40 Pulse Ox 99 06/28/25 08:40 O2 Del Method Room Air 06/28/25 08:40 Pain Score (VAS): no Patient Feedback: Patient satisfied with anesthetic care.
[2025-06-28] MEDS: LIDO 1%/EPINEPHRINE 1:100,000 20 ML VIAL 3 ML INFILTRATE (09:45)
[2025-06-28 09:50] VITALS: BP 92/67; PULSE 58; RESP 16; O2SAT 98
[2025-06-28 10:17] VITALS: BP 94/66; PULSE 54; RESP 16; O2SAT 99
== END 2025-06-28 10:27 | disposition home or self-care (01) ==
LOC: ASC 08:14
PROVIDERS: PCP Family Medicine; Visit Provider Plastic Surgery
PROC: 01N54ZZ Release Median Nerve, Percutaneous Endoscopic Approach (ICD-10-PCS; CPT 29848; principal; 2025-06-28 09:45)
DX: G56.02 Carpal tunnel syndrome, left upper limb (principal)
CPT/HCPCS: 29848

== ENCOUNTER 2025-07-26 13:40 | Outpatient (CLI) | payer OTHER, SELFPAY ==
--- NOTE | ~2025-07-26 | XR_ITS ---
EXAMINATION: XR hand RT 2V, 07/26/2025 13:40 CDT HISTORY: M79.641 - Pain in right hand COMPARISON: No comparisons available. Findings: No acute fracture or malalignment. No significant degenerative changes. Soft tissues unremarkable. Impression: No acute fracture or malalignment. Reviewed, dictated and finalized at location A. Impression: No acute fracture or malalignment.
== END 2025-07-26 13:41 | disposition home or self-care (01) ==
PROVIDERS: PCP Family Medicine; Visit Provider Family Medicine
DX: M79.641 Pain in right hand (principal)
CPT/HCPCS: 73120

== ENCOUNTER 2025-08-30 05:50 | Day surgery (SDC) | payer OTHER, SELFPAY ==
[2025-08-21 09:27] VITALS: BMI 28.0
[2025-08-30 06:28] VITALS: BP 105/77; PULSE 69; RESP 16; TEMP 36.7; O2SAT 99; BMI 28.5
--- NOTE | 2025-08-30 06:31 | P.OP_ITS ---
Procedure Note - Detailed Date of Procedure 08/30/25 Pre-op Diagnosis Bilateral Carpal Tunnel Syndrome Post-op Diagnosis Same Procedure Performed right ectr Surgeon Georgia Machado MD Psychiatric Nursing Assistant Mendez Miller PA-C Anesthesia MAC Description of Procedure INFORMED CONSENT: The patient was seen and examined and marked in the pre-op area.? The patient signed the consent form. PROCEDURE IN DETAIL:The patient taken back to OR on the stretcher in supine position. Time out performed with anesthesia, surgeon and staff agreeing on patient's name site and surgery to be performed SCDs were placed on the lower extremities and inflated. A tourniquet was placed on {right} upper extremity and antibiotics given IV After anesthesia administered sedation I injected {}cc 1%lido with epi and 0.5% marcaine plain at the operative site The?{right upper extremity}?was prepped and draped in sterile fashion the??{right upper extremity} was? exsanguinated with Esmarch bandage and tourniquet inflated to 250mmHg I made a transverse incision in the {right} volar distal wrist crease through skin and dermis with 15 blade scalpel.? Littler scissors spread down to antebrachial fascia. A small incision was made in antebrachial fascia allowing access to Carpal tunnel. I proceeded with sequential dilation staying in line with the ring finger and hugging the hook of the hamate.? I then used the synovial elevator to free any adhesions from the underside of the transverse carpal ligament. Next I was able to insert the Microaire endoscopic carpal tunnel device with direct visualization of the transverse fibers on the monitor and proceeded with complete segmental retrograde release of the ligament in its entirety.? I irrigated with normal saline and closed with 4-0 monocryl for dermis and subcuticular closure. A dressing of Dermabond, 4x4, poly, and a volar splint was applied for patient safety, security, and comfort and secured with an caryn bandage after the tourniquet was let down noting the hand was warm and well perfused. The patient was then awaken from anesthesia and transferred to the recovery room in stable condition.? Complications - none EBL- 0cc Disposition - home in stable condition Mendez Miller PA-C was essential for positioning, retraction, closure and dr essing placement. [facility] Billing Surgery - Charge Forward: Surgery Billing ([id number] for mendez)
--- NOTE | 2025-08-30 06:31 | WPDHPUPDATE1 ---
History and Physical Update Update Date/Time: 08/30/25 06:31 Patient seen and examined in pre-operative holding area. No interval change in medical history or symptoms. Patient recalls previous discussion of benefits and alternatives to procedure. Continues to desire to proceed with right endoscopic possible open carpal tunnel release. Reviewed procedure, post-op expectations and risks including but not limited to bleeding, infection, injury to tendon/nerve/vessel, decreased hand function, stiffness, RSD, no change or worsening of symptoms. I discussed the possible use of assistants and their participation in the case. Patient stated understanding and signed the consent form wishing to proceed.
[2025-08-30] MEDS: ACETAMINOPHEN 500 MG TABLET 1000 MG PO (06:36)
[2025-08-30] MEDS: LACTATED RINGERS 1,000 ML 30 ML IV CONT (06:45)
--- NOTE | 2025-08-30 07:08 | WPDANESEPPF ---
Anes - Initial Pre Proc Eval Procedure: Operation Date: 08/30/25 07:30 Proposed Procedures p Right Endoscopic Carpal Tunnel Release, Possible Open Carpal Tunnel Release - Georgia Machado MD Date/Time: 08/30/25 07:08 Surgeon: Georgia Machado MD Pre Op Diagnosis: Bilateral Carpal Tunnel Syndrome Patient Data Age: 39 Gender: F Height: 1.73 m Weight: 85.3 kg Last Vital Signs Temp 98.1 F 08/30/25 06:28 Pulse 69 08/30/25 06:28 Resp 16 08/30/25 06:28 BP 105/77 08/30/25 06:28 Pulse Ox 99 08/30/25 06:28 O2 Del Method Room Air 08/30/25 06:28 Allergies Allergy/AdvReac Type Severity Reaction Status Date / Time No Known Allergies Allergy Verified 08/30/25 06:09 Home Medications ?Medication ?Instructions ?Recorded ?Confirmed ?Type cetirizine 10 mg tablet (Zyrtec) 10 mg PO DAILY 02/17/22 08/30/25 History lisdexamfetamine 50 mg capsule 50 mg PO DAILY #30 caps 08/21/25 08/30/25 Rx (Vyvanse) sertraline 100 mg tablet 100 mg PO DAILY #180 tabs 08/21/25 08/30/25 Rx Patient hx anesthesia problems: none Family hx anesthesia problems: none Results Review: All pre-operative results and documents have been reviewed as part of the pre-operative evaluation. [facility] Surgical History Surgical History H/O breast surgery 04/2017 Hx of appendectomy Social History Social History Social History: Caffeine-daily Smoking status: Never smoker Second hand tobacco smoke exposure: No Alcohol intake: current Alcohol use details: Rarely Substance use: current Substance use type: marijuana Other substance usage details: 3 X A WEEK Lack of Transportation: No Lack of Food: Never True Current Housing: I Have Housing Concerned About Future Housing: No Difficulty Paying Gas/Electric Bills: No Difficulty Paying for Meds: No Currently Unemployed: No Education: Trade/Vocational Certificate Difficulty w/ Childcare or Family Care: No Living arrangements: with family Spiritual care concerns: No Anes - Eval Final PreProcedure Day of Procedure 08/30/25 07:08 Heart: regular rate and rhythm Lungs: clear to auscultation Airway: Mallampati scale class II Neurological: alert and oriented Last oral intake: >/= 8 hours ASA classification: II Anesthetic plan: proceed Anesthesia type and monitoring: monitored anesthesia care Results Review: All pre-operative results and documents have been reviewed as part of the pre-operative evaluation. Informed Consent: The patient's anesthetic plan and its attendant risks and benefits were discussed with the patient/family/POA. Questions were solicited and answers provided to the satisfaction of the patient/family/POA.
[2025-08-30] MEDS: ceFAZolin SODIUM 2 GM/20 ML SW SYRINGE IV PUSH (07:21)
[2025-08-30] MEDS: LIDO 1%/EPINEPHRINE 1:100,000 20 ML VIAL 10 ML INFILTRATE (07:34)
[2025-08-30] MEDS: BUPivacaine HCL 0.5% 10 ML AMP INFILTRATE (07:35)
[2025-08-30 07:38] VITALS: BP 94/66; PULSE 62; RESP 16; O2SAT 97
[2025-08-30 08:05] VITALS: BP 95/65; PULSE 626; RESP 16; O2SAT 97
== END 2025-08-30 08:08 | disposition home or self-care (01) ==
LOC: ASC 05:57
PROVIDERS: PCP Family Medicine; Visit Provider Plastic Surgery
PROC: 01N54ZZ Release Median Nerve, Percutaneous Endoscopic Approach (ICD-10-PCS; CPT 29848; principal; 2025-08-30 07:30)
DX: G56.01 Carpal tunnel syndrome, right upper limb (principal)
CPT/HCPCS: 29848